=== PATIENT | male | born 1960 | race Caucasian/White ===

== ENCOUNTER 2017-02-20 14:55 | Emergency (ER) | payer OTHER ==
[~2017-02-20] VITALS: Ht 177.8 cm; Wt 97.2 kg
[2017-02-20 15:02] VITALS: TEMP 36.9; Ht 177.8 cm; Wt 97.2 kg
[2017-02-20] MEDS ORDERED: ALLO100T PO (15:10)
[2017-02-20] MEDS ORDERED: ATOR-26 PO (15:10)
[2017-02-20] MEDS ORDERED: PROPARACAINE HCL 0.5% OP SOLN 15 ML BTL OP STA (15:17)
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
[2017-02-20] MEDS ORDERED: TRIMETHOPRIM/POLYMYXIN B OP STA (15:44)
[2017-02-20 16:01] VITALS: BP 120/78; PULSE 78; O2SAT 99
== END 2017-02-20 16:03 | disposition home or self-care (01) ==
LOC: C.EDB 14:55 → C.EDD 16:03
DX: S05.91XA Unspecified injury of right eye and orbit, initial encounter (principal); X58.XXXA Exposure to other specified factors, initial encounter; Z79.899 Other long term (current) drug therapy